=== PATIENT | male | born 1955 | race Caucasian/White ===

== ENCOUNTER 2019-05-23 20:32 | Emergency (ER) | payer BC ==
[2019-05-23 20:51] VITALS: BP 147/89; PULSE 97; RESP 20; TEMP 97.8
[2019-05-23] MEDS ORDERED: RABIES VACCINE (PCEC) 2.5 UNIT KIT IM ONE (21:08)
[2019-05-23] MEDS ORDERED: RABIES IMMUNE GLOB 300 UNIT/ML 5 ML VIAL IM ONE (21:09)
[2019-05-23] MEDS ORDERED: DIPH,PERTUS(ACELL)TETVAC-LF 0.5 ML VIAL IM ONE (22:08)
--- NOTE | 2019-05-23 22:51 | ED ---
General Adult HPI - General Chief complaint: Animal Bite Stated complaint: raccoon bite Time Seen by Provider: 05/23/19 20:54 Source: patient, RN notes reviewed, old records reviewed Mode of arrival: ambulatory Limitations: no limitations - History of Present Illness Initial comments: 63-year-old male patient in ED with chief complaint raccoon bite 2 days ago. Patient reports that They raccoon or lateral. When he went to order picker the raccoon was able to put his head through the bars and bite him. Patient has been on the third digit of his right hand. Patient was seen by urgent care and started on Bactrim and Augmentin. Patient was advised to come here for rabies prophylaxis. Not any other complaints at this time. Systemic: Pt denies fatigue, fever/chills, rash. Pt denies weakness, night sweats, weight loss. Neuro: Pt denies headache, visual disturbances, syncope or pre-syncope. HEENT: Pt denies ocular discharge or irritation, otalgia, rhinorrhea, pharyngitis or notable lymphadenopathy. Cardiopulmonary: Pt denies chest pain, SOB, heart palpitations, dyspnea on exertion. Abdominal/GI: Pt denies abdominal pain, n/v/d. : Pt denies dysuria, burning w/ urination, frequency/urgency. Denies new onset urinary or bowel incontinence. MSK: Pt denies myalgia, loss of strength or function in extremities. Neuro: Pt denies new onset weakness, paresthesias. - Related Data Allergies Allergy/AdvReac Type Severity Reaction Status Date / Time No Known Allergies Allergy Verified 05/23/19 20:51 Review of Systems ROS Statement: Those systems with pertinent positive or pertinent negative responses have been documented in the HPI. ROS Other: All systems not noted in ROS Statement are negative. Past Medical History Past Medical History: No Reported History History of Any Multi-Drug Resistant Organisms: None Reported Past Surgical History: Back Surgery, Tonsillectomy Additional Past Surgical History / Comment(s): jaw surgey Past Psychological History: No Psychological Hx Reported Smoking Status: Former smoker Past Alcohol Use History: Rare Past Drug Use History: None Reported General Exam - General Exam Comments Initial Comments: Constitutional: NAD, AOX3, Pt has pleasant affect. HEENT: NC/AT, trachea midline, neck supple, no lymphadenopathy. Posterior pharynx non erythematous, without exudates. External ears appear normal, without discharge. Mucous membranes moist. Eyes PERRLA, EOM intact. There is no scleral icterus. No pallor noted. Cardiopulmonary: RRR, no murmurs, rubs or gallops, no JVD noted. Lungs CTAB in anterior and posterior chawla. No peripheral edema. Abdominal exam: Abdomen soft and non-distended. Abdomen non-tender to palpation in all 4 quadrants. Bowel sounds active in LLQ. No hepatosplenomegaly. No ecchymosis Neuro: CN II-XII grossly intact. No nuchal rigidity. No raccon eyes, no ayng sign, no hemotympanum. No cervical spinal tenderness. MSK: Mild amount ecchymoses and third distal phalanx. No flexor tenderness. Full active range of motion digit. Cap refill less than 2 seconds. No posterior calf tenderness bilaterally, homans sign negative bilaterally. Posterior t ibialis and radial pulse +2 bilaterally. Sensation intact in upper and lower extremities. Full active ROM in upper and lower extremities, 5/5 stregnth. Limitations: no limitations Course Vital Signs 05/23/19 20:46 Temperature 97.8 F Pulse Rate 97 Respiratory 20 Rate Blood Pressure 147/89 O2 Sat by Pulse 98 Oximetry Medical Decision Making - Medical Decision Making 63-year-old male patient in ED with chief complaint raccoon bite 2 days ago. Patient reports that They raccoon or lateral. When he went to order picker the raccoon was able to put his head through the bars and bite him. Patient has been on the third digit of his right hand. Patient was seen by urgent care and started on Bactrim and Augmentin. Patient was advised to come here for rabies prophylaxis. Not any other complaints at this time. Pt VSS, afebrile. Physical exam displayed: Mild amount ecchymoses and third distal phalanx. Mild no erythema. No flexor tenderness. Full active range of motion digit. Cap refill less than 2 seconds. Patient administered rabies prophylaxis. Patient will be discharged will continue on Augmentin and Bactrim. Tetanus updated. Patient had strict return precautions for prevention of infection. Will follow-up with private care provider and for continues a rabies vaccine. Case discussed with Dr. Askew. Disposition Clinical Impression: Bite by animal Disposition: HOME SELF-CARE Instructions (If sedation given, give patient instructions): Animal Bite (ED) Additional Instructions: Patient to adhere to previously discussed treatment plan and will take medication(s) as directed. Patient to follow up with PCP in 1-2 days. Patient to return to ED if symptoms do not improve. Go to [facility] for rabies shots on days 3, 7, 14 (05/26/19, 05/30/19, 06/06/19) Continue to take Augmentin and Bactrim as prescribed. Return immediately to ER condition worsens. Please monitor for signs and symptoms of infection including: redness, warmth, drainage, discharge. Please return to ED if these signs or symptoms occur, new signs or symptoms develop or if condition worsens in anyway. Is patient prescribed a controlled substance at d/c from ED?: No Referrals: Timbo Daly DO [Primary Care Provider] - 1-2 days
== END 2019-05-23 22:56 | disposition home or self-care (01) ==
LOC: EC 20:32
DX: S60.031A Contusion of right middle finger without damage to nail, initial encounter (principal); Z87.891 Personal history of nicotine dependence; Z23 Encounter for immunization; W55.51XA Bitten by raccoon, initial encounter
CPT/HCPCS: 90375; 90471; 90472; 90675; 90715; 96372; 99283

== ENCOUNTER → 2020-05-05 | Outpatient (CLI) | payer MEDICARE ==
[2020-05-05 15:42] LABS: African American GFR (CKD) >90 (>60 ml/min/1.73 sqM); Anion Gap 8 mmol/L; Blood Urea Nitrogen 13 mg/dL (9-20); Calcium 9.4 mg/dL (8.4-10.2); Carbon Dioxide 25 mmol/L (22-30); Chloride 104 mmol/L (98-107); Glucose 147 mg/dL (74-99); Non-African American GFR(CKD) >90 (>60 ml/min/1.73 sqM); Potassium 4.1 mmol/L (3.5-5.1); Sodium 137 mmol/L (137-145)
[2020-05-06 01:05] LABS: Prostate Specific Antigen 0.8 ng/mL (0.0-4.5)
[2020-05-06 01:08] LABS: Hemoglobin A1C 6.7 % (4.0-6.0)
== END | disposition home or self-care (01) ==
LOC: LAB 14:57
PROVIDERS: ATTEND Internal Medicine
DX: N04.1 Nephrotic syndrome with focal and segmental glomerular lesions (principal); N11.9 Chronic tubulo-interstitial nephritis, unspecified
CPT/HCPCS: 80048; 83036; 84153

== ENCOUNTER → 2021-04-13 | Outpatient (CLI) | payer BC ==
--- NOTE | 2021-04-14 08:47 | US ---
EXAMINATION TYPE: US kidneys/renal and bladder DATE OF EXAM: 04/13/2021 COMPARISON: NONE CLINICAL HISTORY: R10.9 Flank Pain Left. Left side pain. EXAM MEASUREMENTS: Right Kidney: 11.6 x 5.3 x 6.5 cm Left Kidney: 11.3 x 5.1 x 6.8 cm Right Kidney: Cystic lesion seen in renal sinus= 2.1 x 1.5 x 1.1 cm Left Kidney: Multiple echogenic foci seen, with largest appearing obstructing= 1.7 x 1.2 cm these a re suggestive of nonobstructing renal calculi. Bladder: distended, anechoic Bilateral Jets are seen No evidence of hydronephrosis. IMPRESSION: 1. 2.1 cm right renal sinus cyst. 2. Multiple echogenic foci measuring up to 1.7 x 1.2 cm and the left kidney most suggestive of renal calculi. No evidence of hydronephrosis recommend.
== END | disposition home or self-care (01) ==
LOC: RADUSWWP 16:03
PROVIDERS: ATTEND Internal Medicine
DX: N28.1 Cyst of kidney, acquired (principal)
CPT/HCPCS: 76770

== ENCOUNTER → 2021-05-03 | Outpatient (CLI) | payer BC, MEDICARE ==
[2021-05-04 01:21] LABS: African American GFR (CKD) 107.9 (60.0-200.0); Anion Gap 7.9 mmol/L (4.00-12.00); BUN/Creat Ratio 17.5 Ratio (12.00-20.00); Calcium 9.3 mg/dL (8.7-10.3); Carbon Dioxide 27.1 mmol/L (21.6-31.8); Non-African American GFR(CKD) 93.1 (60.0-200.0); Potassium 4.2 mmol/L (3.5-5.5)
[2021-05-04 01:28] LABS: T4, Free (Free Thyroxine) 1.1 ng/dL (0.80-1.80)
== END | disposition home or self-care (01) ==
LOC: LABWHC1 15:14
PROVIDERS: ATTEND Internal Medicine
DX: E11.9 Type 2 diabetes mellitus without complications (principal); R53.82 Chronic fatigue, unspecified
CPT/HCPCS: 36415; 80048; 83036; 84439; 84443; 84481

== ENCOUNTER → 2021-07-29 | Outpatient (CLI) | payer MEDICARE ==
[2021-07-29 14:12] LABS: African American GFR (CKD) >90 (>60 ml/min/1.73 sqM); Blood Urea Nitrogen 17 mg/dL (9-20); Non-African American GFR(CKD) >90 (>60 ml/min/1.73 sqM)
--- NOTE | 2021-07-29 16:47 | CT ---
EXAMINATION TYPE: CT urogram wo/w con DATE OF EXAM: 07/29/2021 COMPARISON: INDICATION: hematuria, Lt flank pain DLP: 89276 mGycm, Automated exposure control for dose reduction was used. CONTRAST: 100 mL of Isovue 300. Study performed TECHNIQUE: Axial images were obtained from above the diaphragm to the pubic rami in the axial plane a t 5 mm thick sections. Reconstructed images are reviewed on the computer in the coronal plane. FINDINGS: Limited CT sections are obtained the lung bases. The lung bases are clear. CT ABDOMEN: Liver: There is a 1.9 cm hypodensity within the right lobe liver this somewhat intermediate in densit y measuring 50 Hounsfield units. Complex cyst or mass is within the differential Spleen: Normal Pancreas: Normal Adrenal glands: The adrenal glands are normal. Gallbladder: Normal Kidneys: No masses are evident. No hydronephrosis is present. No cysts are present. On precontrast imaging there is a 0.6 cm calcification without obstruction. There is a 0.6 cm calcif ication at the inferior pole left kidney without obstruction. There is an adjacent 0.6 cm calcificati on. Within the mid kidney without obstruction is a 1.2 cm calcification. There is mild prominence of the renal pelvis at this level however in mild obstruction be considered. Three-D reconstructed images performed on a separate computer reviewed. There is mild diffuse promine nce of the left renal collecting system and ureter. Right renal collecting system and ureter were vis ualized is normal. Aorta: Vascular calcification is within the aorta. Inferior vena cava: Normal. CT PELVIS: Loops of bowel within the abdomen and pelvis are normal. Diverticular changes are within the sigmoid colon. There are loops of bowel which are incompletely distended or lack oral contrast limiting th eir evaluation. Appendix: Normal as visualized. Urinary bladder: Normal. Genitourinary structures: Prostate is prominent. Osseous structures: No suspicious lytic or sclerotic lesions. IMPRESSIONS: 1. Very minimal left hydronephrosis may be present from a large renal stone at the renal pelvis. Hyd roureter is present without obstruction. 2. There are additional nonobstructing renal stones in the inferior pole left kidney and upper pole r ight kidney. 3. Diverticulosis without acute diverticulitis. 4. Hypodensity within the liver is not a simple cyst and is poorly visualized on delayed contrast yenifer ges. Consider ultrasound to evaluate for hemangioma.
== END | disposition home or self-care (01) ==
LOC: RADCTMAIN 13:30
PROVIDERS: ATTEND Urology
DX: N20.0 Calculus of kidney (principal); N13.30 Unspecified hydronephrosis; N13.4 Hydroureter; K57.30 Diverticulosis of large intestine without perforation or abscess without bleeding
CPT/HCPCS: 82565; 84520; 74178; 36415; 74400; Q9967

== ENCOUNTER → 2021-09-08 | Outpatient (CLI) | payer MEDICARE ==
[2021-09-08 15:20] LABS: Basophils % (A) 0 %; Eosinophils % (A) 0 %; HCT 39.7 % (39.0-53.0); HGB 13.3 gm/dL (13.0-17.5); Lymphocytes # (A) 1.3 k/uL (1.0-4.8); Lymphocytes % (A) 25 %; MCH 27.4 pg (25.0-35.0); MCHC 33.5 g/dL (31.0-37.0); MCV 81.8 fL (80.0-100.0); Mean Platelet Volume 8.5; Monocytes # (A) 0.3 k/uL (0-1.0); Monocytes % (A) 6 %; Neutrophils # (A) 3.7 k/uL (1.3-7.7); Neutrophils % (A) 67 %; Platelet Count 188 k/uL (150-450); RBC 4.85 m/uL (4.30-5.90); RDW 15.5 % (11.5-15.5); WBC 5.5 k/uL (3.8-10.6)
[2021-09-08 15:27] LABS: African American GFR (CKD) >90 (>60 ml/min/1.73 sqM); Anion Gap 9 mmol/L; Blood Urea Nitrogen 10 mg/dL (9-20); Calcium 9.1 mg/dL (8.4-10.2); Carbon Dioxide 25 mmol/L (22-30); Chloride 103 mmol/L (98-107); Glucose 168 mg/dL (74-99); Non-African American GFR(CKD) >90 (>60 ml/min/1.73 sqM); Potassium 4.3 mmol/L (3.5-5.1); Sodium 137 mmol/L (137-145)
[2021-09-08 15:46] LABS: Appearance,Urine Clear (Clear); Bilirubin,Urine Negative (Negative); Blood,Urine Trace (Negative); Color,Urine Light Yellow; Glucose,Urine (UA) Negative (Negative); Ketones,Urine Negative (Negative); Leukocyte Esterase,Urine Negative (Negative); Nitrite,Urine Negative (Negative); Protein,Urine Negative (Negative); RBC,Urine 1 /hpf (0-5); Specific Gravity,Urine 1.005 (1.001-1.035); Urobilinogen,Urine <2.0 mg/dL (<2.0); WBC,Urine 2 /hpf (0-5)
== END | disposition home or self-care (01) ==
LOC: LABPAT 14:25
PROVIDERS: ATTEND Urology
DX: Z01.812 Encounter for preprocedural laboratory examination (principal); N20.0 Calculus of kidney
CPT/HCPCS: 80048; 81001; 85025; 87086

== ENCOUNTER 2021-09-17 11:12 | Day surgery (SDC) | payer MEDICARE ==
[2021-09-14 09:20] VITALS: BMI 23.7
--- NOTE | 2021-09-16 15:05 | P.HPIHPCON ---
History of Present Illness H&P Date: 09/16/21 This is a 66-year-old male with history of multiple left-sided renal stones, stone burden is greater than 2 cm. Discussed with him the option of a left- sided percutaneous nephrolithotomy. Option of staged ureteroscopy was also discussed. Risk and benefit of each approach were discussed in detail. He agreed to proceed with left-sided retrograde cutaneous nephrolithotomy. Discussed with him the risk which includes but not limited to bleeding, infection, injury to nearby organs which includes but not limited to bowel, spleen, lung. Discussed also with him risk from anesthesia. He understood all the risk with great proceed left-sided percutaneous nephrolithotomy Consent for Procedure: I have explained the operation/procedure to the patient, including the risks, benefits, side effects, alternative therapies (including not receiving the proposed treatment or service), the likelihood of the patient achieving his/her goals, and potential recuperation problems for the procedure/sedation/analgesia, as well as any blood products, if indicated. I also explained to the patient the risks, benefits and side effects of the alternatives, as well as the risks related to not receiving the proposed procedure, care, treatment, or services. Past Medical History Past Medical History: Diabetes Mellitus, Osteoarthritis (OA) Additional Past Medical History / Comment(s): kidney stones, History of Any Multi-Drug Resistant Organisms: None Reported Past Surgical History: Tonsillectomy Additional Past Surgical History / Comment(s): fatty deposit removed from back Past Anesthesia/Blood Transfusion Reactions: No Reported Reaction Smoking Status: Former smoker - Past Family History Mother Family Medical History: No Reported History Medications and Allergies Home Medications Medication Instructions Recorded Confirmed Type metFORMIN HCL [Glucophage] 500 mg PO TID 09/14/21 09/14/21 History Allergies Allergy/AdvReac Type Severity Reaction Status Date / Time No Known Allergies Allergy Verified 09/14/21 09:11 Surgical - Exam - General no distress, moderate pain - Eyes PERRL, normal ocular movement - ENT normal nares, normal mucosa - Respiratory normal expansion, normal respiratory effort - Abdomen Abdomen: soft, non tender - Psychiatric oriented to time, oriented to person, oriented to place Assessment and Plan Assessment: OR for left-sided PCNL
[~2021-09-17 11:12] MED LIST: DEXAMETHASONE SOD PHOSPHATE 4 MG/ML 1 ML VIAL IV ONE; HYDROmorphone 0.5 MG/0.5 ML SYRINGE IVP PRN; MIDAZOLAM 2 MG/2 ML VIAL IV PRN; ONDANSETRON 4 MG/2 ML VIAL IVP ONE
--- NOTE | 2021-09-17 11:49 | XR ---
EXAMINATION TYPE: XR KUB DATE OF EXAM: 09/17/2021 COMPARISON: 07/29/2021 HISTORY: Preop TECHNIQUE: One view abdominal series FINDINGS: The osseous structures are intact. The bowel gas pattern is nonspecific. Multiple calcifications are seen in the left with the largest measuring 1.8 cm. Hypertrophic and degenerative changes of the sp ine. Vascular calcifications pelvis. Arthropathy of the hips. Bowel gas pattern nonspecific. IMPRESSION: 1. Large left renal calculi.
[2021-09-17 12:40] LABS: Glucose,Whole Blood 139 mg/dL (75-99)
[2021-09-17] MEDS: LACTATED RINGERS 1,000 ML IV SCH (12:40)
[2021-09-17] MEDS ORDERED: LIDOCAINE 1% (10MG/ML) FOR IV START INTRADERMA ONE (12:42)
[2021-09-17] MEDS ORDERED: PROPOFOL 10 MG/ML 20 ML VIAL IV ONE (13:21)
[2021-09-17] MEDS ORDERED: ROCURONIUM 10 MG/ML (5 ML VIAL) IV ONE (13:21)
[2021-09-17] MEDS ORDERED: SUCCINYLCHOLINE CHLORIDE 100 MG/5 ML SYR IV ONE (13:21)
[2021-09-17] MEDS ORDERED: KETAMINE 10 MG/ML 20 ML VIAL ONE (13:21)
[2021-09-17] MEDS ORDERED: LIDOCAINE 1% INJ 10MG/ML (20 ML MDV) ONE (13:21)
[2021-09-17] MEDS ORDERED: .fentaNYL (PF) 50 MCG/ML 2 ML AMP ONE (13:21)
[2021-09-17] MEDS ORDERED: MIDAZOLAM 2 MG/2 ML VIAL ONE (13:21)
[2021-09-17] MEDS ORDERED: IOPAMIDOL-370 50ML BTL MISCELLANE ONE (13:45)
[2021-09-17] MEDS ORDERED: LACTATED RINGERS 1,000 ML IV ONE ×3 (14:24→17:13)
[2021-09-17] MEDS ORDERED: ACETAMINOPHEN TAB 325 MG TAB PO PRN (16:40)
[2021-09-17] MEDS ORDERED: ONDANSETRON 4 MG/2 ML VIAL IVP PRN (16:40)
[2021-09-17] MEDS ORDERED: MAG HYDROX/AL HYDROX/SIMETH 30 ML CUP PO PRN (16:40)
--- NOTE | 2021-09-17 16:40 | P.OP ---
Date of Procedure: 09/17/21 Preoperative Diagnosis: Left renal stone Postoperative Diagnosis: Same Procedure(s) Performed: Cystoscopy, left ureteral catheterization, left percutaneous nephrolithotomy, nephrostomy tube placement Implants: None Anesthesia: LORRAINEA Surgeon: Adal Salomon Estimated Blood Loss (ml): 300 Pathology: other (left renal stone) Condition: stable Disposition: PACU Indications for Procedure: This is a 66-year-old male with history of multiple left-sided renal stones, stone burden is greater than 2 cm. Discussed with him the option of a left- sided percutaneous nephrolithotomy. Option of staged ureteroscopy was also discussed. Risk and benefit of each approach were discussed in detail. He agreed to proceed with left-sided retrograde cutaneous nephrolithotomy. Discussed with him the risk which includes but not limited to bleeding, infection, injury to nearby organs which includes but not limited to bowel, spleen, lung. Discussed also with him risk from anesthesia. He understood all the risk with great proceed left-sided percutaneous nephrolithotomy Operative Findings: Large stone within the left renal pelvis, multiple smaller stones within the left lower pole Description of Procedure: Patient was brought to the operating room general anesthesia was induced she was prepped and draped in sterile fashion and placed in frog leg position on the stretcher. Cystoscopy fitted with a 21-Mexican sheath was inserted per urethra, brief cystoscopy was performed showed no abnormality within the bladder, of note I was not able to visualize the dome lateral wall the bladder completely. Attention was then carried to the left ureteral orifice which was intubated with a balloon occluding catheter. 16-Mexican Zamarripa was placed, and the balloon catheter was secured to the Zamarripa. At this time the patient was placed in prone position, all pressure points were padded. The left flank was prepped and draped in sterile fashion. Next air was injected through the balloon occluding catheter, and left renal access was obtained by Dr. Che, please see his op note for his portion of the operation. After 2 wires were passed down the ureter a nephrostomy balloon dilator was passed over this wire, and under fluoroscopy the tract was dilated. Next a 30-Mexican access sheath was passed over the balloon dilator and into the kidney. The access was at the lower calyx. Next the rigid nephroscope was advanced through the access sheath initially a large stone in the lower pole was encountered and removed, next a large stone was visualized in the renal pelvis. Using the ultrasound the stone was fragmented into small fragments, the fragments were removed and sent for analysis. Repeat renoscopy showed no additional fragments within the renal pelvis. 2 additional stones were encountered in the lower pole that were removed. There was a radiopaque density in the lower pole that measured less than 5 mm, multiple attempts was performed to identify the stone but I was not able to visualize the stone. Repeat fluoroscopy and the end of the case showed no additional stones outside the lower pole radiopaque density. At this time a 12-Mexican nephrostomy tube was passed over the wire, the location was confirmed on fluoroscopy. 2-0 Vicryl stitches was placed in the subcutaneous tissue The tube was secured to the patient's skin using 2-0 silk. Sterile dressing was placed. Patient tolerated the procedure well was taken to recovery in stable condition
--- NOTE | 2021-09-17 16:51 | FL ---
EXAMINATION TYPE: FL Perc Nephrostomy New Access DATE OF EXAM: 09/17/2021 COMPARISON: NONE HISTORY: KIDNEY STONE TECHNIQUE: Fluoroscopy. FINDINGS: Fluoroscopic guidance was provided during procedure performed . A total of 10 seconds of fluoroscopic time was utilized during the procedure and 6 spot images was acquired. IMPRESSION: As Above.
[2021-09-17] MEDS: KETOROLAC 30 MG/ML 1 ML VIAL IVP SCH ×2 (17:36→23:54)
[2021-09-17] MEDS: metFORMIN 500 MG TAB PO SCH (21:20)
[2021-09-17] MEDS: HEPARIN SODIUM,PORCINE/PF 5,000 UNIT/0.5 ML SYRINGE SQ SCH (21:20)
[2021-09-17] MEDS: MORPHINE SULFATE 4 MG/ML SYRINGE IVP PRN (21:27)
[2021-09-17] MEDS: SODIUM CHLORIDE 0.9% 1,000 ML IV SCH (21:33)
[2021-09-17 21:44] LABS: Glucose,Whole Blood 274 mg/dL (75-99)
[2021-09-18] MEDS: MORPHINE SULFATE 4 MG/ML SYRINGE IVP PRN (03:17)
[2021-09-18] MEDS: KETOROLAC 30 MG/ML 1 ML VIAL IVP SCH ×2 (06:21→12:33)
[2021-09-18] MEDS: SODIUM CHLORIDE 0.9% 1,000 ML IV SCH (06:26)
[2021-09-18] MEDS: LACTATED RINGERS 1,000 ML IV SCH (06:27)
[2021-09-18] MEDS: HEPARIN SODIUM,PORCINE/PF 5,000 UNIT/0.5 ML SYRINGE SQ SCH (08:56)
[2021-09-18] MEDS: metFORMIN 500 MG TAB PO SCH ×2 (08:56→16:06)
[2021-09-18 10:08] LABS: MCH 29.1 pg (25.0-35.0); MCV 80.7 fL (80.0-100.0); Mean Platelet Volume 8.7; Platelet Count 158 k/uL (150-450); RBC 3.34 m/uL (4.30-5.90); RDW 15.9 % (11.5-15.5); WBC 7.5 k/uL (3.8-10.6)
[2021-09-18 10:16] LABS: HGB 9.7 gm/dL (13.0-17.5)
[2021-09-18 12:35] LABS: Glucose,Whole Blood 135 mg/dL (75-99)
[2021-09-18 15:09] VITALS: BP 116/61; PULSE 82; RESP 14; TEMP 97.7
[2021-09-18 16:18] LABS: HCT 27.9 % (39.0-53.0); HGB 9.8 gm/dL (13.0-17.5); MCH 28.2 pg (25.0-35.0); MCHC 35.2 g/dL (31.0-37.0); Mean Platelet Volume 8.7; Platelet Count 158 k/uL (150-450); RBC 3.49 m/uL (4.30-5.90); RDW 15.5 % (11.5-15.5); WBC 8.8 k/uL (3.8-10.6)
[2021-09-18 17:30] LABS: Glucose,Whole Blood 155 mg/dL (75-99)
== END 2021-09-18 18:27 | disposition home or self-care (01) ==
LOC: OR 11:12 → 1SOBS 17:19 → OR 09-18 18:27
PROVIDERS: ATTEND Urology
DX: N20.0 Calculus of kidney (principal); Z20.822 Contact with and (suspected) exposure to COVID-19
CPT/HCPCS: 50432; 86900; 86901; 85027; 86850; 82365; 87635; 74018; C1769 ×4; C2628; C1729; J2250; J2270 ×2; J1100; J0690; J2405; J2001; J3010; J1885 ×2; J0330; J2704; Q9967; J1644 ×2

== ENCOUNTER → 2021-11-29 | Outpatient (CLI) | payer MEDICARE ==
--- NOTE | 2021-11-29 14:05 | US ---
EXAMINATION TYPE: US kidneys/renal and bladder DATE OF EXAM: 11/29/2021 COMPARISON: Correlation CT urogram 07/29/2021 CLINICAL HISTORY: 66-year-old male N20.0 Calculus of Kidney, left. Recent surgical procedure to remov e left renal stones TECHNIQUE: Multiple sonographic images of the kidneys and bladder are obtained. FINDINGS: EXAM MEASUREMENTS: Right Kidney: 10.4 x 5.1 x 5.8 cm Left Kidney: 11.0 x 5.4 x 7.2 cm Right Kidney: 1.8cm parapelvic cyst when correlated with CT of 07/29/2021. No hydronephrosis. Left Kidney: 2 echogenic foci at the inferior pole that could be remaining stones from recent removal procedure, #1 = 0.8 x 0.6cm, #2 = 0.7 x 0.8cm. No hydronephrosis. Bladder: wnl IMPRESSION: 1. A 1.8 cm parapelvic cyst of the right kidney. 2. No hydronephrosis on either side. 3. 2 residual nonobstructive left lower pole renal calculi measuring 8 mm each.
== END | disposition home or self-care (01) ==
LOC: RADUSWWP 12:09
PROVIDERS: ATTEND Urology
DX: N20.0 Calculus of kidney (principal); N28.1 Cyst of kidney, acquired
CPT/HCPCS: 76770